=== PATIENT | female | born 2000 | race Caucasian/White ===

== ENCOUNTER 2020-12-08 00:22 | Emergency (ER) | payer OTHER ==
[~2020-12-08] VITALS: Ht 170.2 cm; Wt 79.5 kg
[2020-12-08 00:24] VITALS: TEMP 98
[2020-12-08 01:30] VITALS: BP 138/64; PULSE 72
== END 2020-12-08 01:30 | disposition home or self-care (01) ==
LOC: COL.ER 00:22 → EDBD 00:23 → COL.ER 01:30
DX: F10.129 Alcohol abuse with intoxication, unspecified (principal)